=== PATIENT | male | born 1955 | race African-American/Black ===

== ENCOUNTER 2019-09-24 11:52 | Emergency (ER) | payer SELFPAY ==
[~2019-09-24] VITALS: Ht 190.5 cm; Wt 105.0 kg
[2019-09-24 13:42] LABS: BASOPHILS % 0.3 % (0.0-2.0); EOSINOPHILS % 0.3 % (0.0-5.0); HEMATOCRIT. 44.6 % (42.0-52.0); HEMOGLOBIN. 15.2 g/dL (14.0-18.0); LYMPHOCYTES % 9.4 % (20.0-50.0); MEAN CORPUSCULAR HEMOGLOBIN 30.9 pg (28.0-32.0); MEAN CORPUSCULAR VOLUME 90.9 fL (80.0-94.0); MEAN PLATELET VOLUME 8.6 fl (7.4-10.4); MONOCYTES % 5.6 % (2.0-8.0); NEUTROPHILS % 84.4 % (40.0-76.0); PLATELET 254 x1000/uL (130-400); RED BLOOD CELL COUNT 4.91 mill/uL (4.7-6.1); RED CELL DISTRIBUTION WIDTH 13.7 % (11.6-14.6)
[2019-09-24 13:45] LABS: CHLORIDE 110 mEq/L (98-107)
[2019-09-24 13:49] LABS: ETHANOL BLOOD < 10 mg/dL
[2019-09-24 15:11] LABS: CLARITY URINE CLEAR (CLEAR); COLOR URINE YELLOW (YELLOW); KETONES URINE NEGATIVE (NEGATIVE); LEUKOCYTE ESTERASE URINE TRACE (NEGATIVE); NITRITE URINE NEGATIVE (NEGATIVE); OCCULT BLOOD URINE NEGATIVE (NEGATIVE); PH URINE 6.5 (4.5-8.0); PROTEIN URINE TRACE (NEGATIVE); SPECIFIC GRAVITY URINE 1.016 (1.005-1.030); UROBILINOGEN URINE 0.2 E.U./dL (0.2-1.0)
[2019-09-24 15:23] LABS: *AMPHETAMINES SCREEN URINE NEGATIVE (NEGATIVE); *BARBITURATES SCREEN URINE NEGATIVE (NEGATIVE); *BENZODIAZEPINES SCREEN URINE NEGATIVE (NEGATIVE); *COCAINE SCREEN URINE NEGATIVE (NEGATIVE); METHADONE URINE SCREEN NEGATIVE (NEGATIVE); OPIATES URINE SCREEN NEGATIVE (NEGATIVE)
[2019-09-24 15:24] LABS: CANNABINOID URINE SCREEN NEGATIVE (NEGATIVE); PHENCYCLIDINE URINE SCREEN NEGATIVE (NEGATIVE)
[2019-09-24] MEDS ORDERED: LORAZEPAM 2MG/ML CPJ IV ONE (16:00)
[2019-09-24] MEDS ORDERED: ONDANSETRON HCL 4MG/2ML INJ IV ONE (17:45)
[2019-09-24 22:13] VITALS: BP 135/77
[2019-09-24] MEDS ORDERED: ACETAMINOPHEN 325MG TABLET PO ONE (22:30)
== END 2019-09-24 22:32 | disposition short-term general hospital (02) ==
LOC: ER 12:51
DX: R56.9 Unspecified convulsions (principal); R41.0 Disorientation, unspecified; I10 Essential (primary) hypertension; Z98.890 Other specified postprocedural states
CPT/HCPCS: 36415; 70450; 80053; 80185; 80305; 80320; 81003; 82962; 85025; 96374; 96375; 99285; J2060; J2405; G0480